=== PATIENT | male | born 1930 | race Caucasian/White ===

== ENCOUNTER 2018-03-19 13:36 | Observation (INO) ==
--- NOTE | 2018-03-19 14:24 | Emergency Department Note ---
ED Disposition Clinical Impression: Cystitis without hematuria Acute kidney failure Qualifiers: Acute renal failure type: unspecified Qualified Code(s): N17.9 - Acute kidney failure, unspecified Disposition: Admitted as Observation Condition on Discharge: Fair Additional Instructions: Being admitted by Dr. Riley for Dr. Martin Referrals: Krystin Barbosa APRN [Primary Care Provider] - Time of Disposition: 17:23 - Critical Care Critical Care Time: No Attestation: On 03/19/18, the high probability of a clinically significant, sudden or life threatening deterioration of the following system(s) required my full and direct attention, intervention and personal management. The time I documented below is in addition to time spent performing reported procedures but includes the following listed in this critical care notation. Medical Decision Making - Medical Records Medical records reviewed: Yes: I reviewed the patient's medical records. - Mil Inquiry Pt receiving controlled substance: No Mil was queried for this patient: No Vital Signs: 03/19/18 13:55 03/19/18 14:07 03/19/18 14:36 Temperature 98.7 F 98.7 F Temperature Source Temporal Artery Scan Oral Pulse Rate [Right Radial] 76 74 69 Respiratory Rate 16 16 16 Blood Pressure [Right Arm] 99/58 106/61 102/54 Blood Pressure Mean [Right Arm] 71 76 70 Blood Pressure Source [Right Arm] Automatic Cuff Automatic Cuff Blood Pressure Position [Right Arm] Sitting Sitting 02 Sat by Pulse Oximetry 96 97 92 L Oxygen Delivery Method Room Air Room Air Room Air 03/19/18 15:00 03/19/18 15:56 03/19/18 16:56 Temperature Temperature Source Pulse Rate [Right Radial] 77 76 72 Respiratory Rate 16 18 Blood Pressure [Right Arm] 104/59 107/74 115/72 Blood Pressure Mean [Right Arm] 74 85 86 Blood Pressure Source [Right Arm] Automatic Cuff Automatic Cuff Automatic Cuff Blood Pressure Position [Right Arm] Sitting Sitting Sitting 02 Sat by Pulse Oximetry 93 L 95 96 Oxygen Delivery Method Room Air Room Air Room Air - Lab Data Lab results reviewed: Yes: I reviewed the patient's lab results. Lab Results 03/19/18 14:25: WBC 9.8, RBC 3.74 L, Hgb 12.1 L, Hct 36.7 L, MCV 97.9 H, MCH 32.3 H, MCHC 33.0, RDW 12.8, Plt Count 211, MPV 8.6, Neut % (Auto) 81.0 H, Lymph % (Auto) 12.2, [place] % (Auto) 5.9, Eos % (Auto) 0.6, Baso % (Auto) 0.3, Neut # (Auto) 7.9 H, Lymph # (Auto) 1.2, [place] # (Auto) 0.6, Eos # (Auto) 0.1, Baso # (Auto) 0.0 03/19/18 14:25: Sodium 139, Potassium 5.2 H, Chloride 107, Carbon Dioxide 21, Anion Gap 16.2 H, BUN 23 H, Creatinine 2.96 H, Estimated Creat Clear 25, Estimated GFR 20 L, Est GFR ( Amer) 25 L, Glucose 107 H, Calcium 9.5, Total Bilirubin 0.6, AST 11 L, ALT 20, Alkaline Phosphatase 104, Total Protein 6.4, Albumin 3.2 L, Globulin 3.2, Albumin/Globulin Ratio 1.0 L 03/19/18 15:23: Lactic Acid 0.8 03/19/18 16:30: Urine Color Yellow, Urine Appearance Cloudy, Urine pH 6.0, Ur Specific [place] 1.025, Urine Protein Trace, Urine Glucose (UA) Negative, Urine Ketones Negative, Urine Blood 2+, Urine Nitrate Negative, Urine Bilirubin Negative, Urine Urobilinogen 0.2, Ur Leukocyte Esterase 2+ A, Urine RBC 5-10, Urine WBC 5-10, Uric Acid Crystals 4+, Urine Bacteria Trace Result diagrams: 03/19/18 14:25 03/19/18 14:25 Orders (Tests/Meds): ED MEDICATIONS Generic Name Dose Route Start Last Admin Trade Name Freq PRN Reason Stop Dose Admin Ceftriaxone Sodium 1 gm/ 50 mls @ 100 mls/hr 03/19/18 17:15 Sodium Chloride IV 03/19/18 17:44 ONCE ONE Protocol Discontinued Medications Generic Name Dose Route Start Last Admin Trade Name Freq PRN Reason Stop Dose Admin Sodium Chloride 1,000 mls @ 500 mls/hr 03/19/18 14:15 03/19/18 14:26 Sod Chlor 0.9% 1000ml Bag IV 03/19/18 16:14 500 mls/hr .Q2H DANITZA Administration Ketorolac Tromethamine 15 mg 03/19/18 14:31 03/19/18 14:36 Toradol 30mg/Ml Vial IV 03/19/18 14:32 15 mg ONCE ONE Administration ORDERS Category Date Time Status Blood Culture Stat Micro 03/19/18 15:23 Received Urine Culture Stat Micro 03/19/18 16:30 Received Male Urogenital HPI - General Chief complaint: Weakness Stated complaint: Poss UTI Time Seen by Provider: 03/19/18 14:15 Mode of Arrival: Wheelchair Source of Information: Spouse Limitations: No Limitations Description of Symptoms (Recalled from ER Triage Doc. by RN): brought pt into hospital because she is concerned with hydration status, states pt is weak and she thinks uti has came back. - History of Present Illness HPI Narrative: Pt had hip surgery on left side 2 weeks ago in [place] and Tuesday was started on Bactrim for a UTI by Dr. Moser's office. Not eating well or drinking well and reportedly talking out of his head according to . now comes to the eD for evaluation Onset (ago): day(s) Duration: constant - Related Data Home Medications Medication Instructions Recorded Confirmed Amlodipine Besylate [Norvasc 5mg 5 mg PO DAILY 11/15/17 03/19/18 tablet] Aspirin [Aspir 81] 81 mg PO DAILY MDD 81mg 11/15/17 03/19/18 Clopidogrel Bisulfate [Plavix 75mg 75 mg PO DAILY MDD 75mg 11/15/17 03/19/18 Tab] Metformin HCl [Metformin 500mg 500 mg PO DAILY MDD 500mg 11/15/17 03/19/18 Tablet] Sacubitril/Valsartan [Entresto 24 1 each PO BID 11/15/17 03/19/18 mg-26 mg Tablet] Sulfamethoxazole/Trimethoprim 1 each PO BID 03/19/18 03/19/18 [Bactrim DS tablet] Allergies Allergy/AdvReac Type Severity Reaction Status Date / Time acetaminophen [From Lortab] Allergy Verified 03/19/18 13:55 hydrocodone [From Lortab] Allergy Verified 03/19/18 13:55 morphine [MORPHINE] AdvReac Unknown "MAKES Verified 03/19/18 13:55 CRAZY" [facility] History I have reviewed the patient's past medical history: Yes Medical History: Reports:: Myocardial Infarction (July 2018) Denies:: Cancer, Diabetes Mellitus Type 1, Diabetes Mellitus Type 2, Internal Pacemaker, MRSA Laterality Cases: Right: Arthroscopy Hip Other Surgeries: No: Pacemaker Amputation: No Fractures: No - Social History Smoking Status: Never smoker Alcohol Intake: never - Psychiatric History Expresses thoughts of harming self/others: None Suicide Plan Description: No Plan ROS Obtained: Yes All systems reviewed & no additional complaints Physical Exam - General General appearance: alert, in no apparent distress - Head Head exam: atraumatic - ENT ENT exam: Present: mucous membranes dry - Respiratory Respiratory exam: Present: normal lung sounds bilaterally, respiratory distress - Cardiovascular Cardiovascular exam: Present: regular rate, normal rhythm - Neurological Exam Neurological exam: Present: alert
[2018-03-19 14:45] LABS: Basophils % 0.3 % (0.1-2.0); Eosinophils # 0.1 K/mm3 (0.0-0.4); Eosinophils % 0.6 % (0.1-12.0); Hematocrit 36.7 % (42.0-52.0); Hemoglobin 12.1 g/dL (14.1-18.0); Lymphocytes # 1.2 K/mm3 (0.7-4.5); Lymphocytes % 12.2 K/mm3 (10-50); Mean Corpuscular Hemoglobin 32.3 pg (27.0-31.2); Mean Corpuscular Volume 97.9 fl (80-94); Mean Platelet Volume 8.6 fl (7.4-10.4); Monocytes # 0.6 K/mm3 (0.1-1.0); Monocytes % 5.9 % (1.7-9.3); Neutrophils # 7.9 K/mm3 (1.8-7.8); Platelet Count 211 K/mm3 (142-424); Red Blood Count 3.74 M/mm3 (4.60-6.20); Red Cell Distribution Width 12.8 % (11.5-17.5); White Blood Count 9.8 K/mm3 (4.8-10.8)
[2018-03-19 14:48] LABS: Albumin Level 3.2 gm/dL (3.4-5.0); Anion Gap 16.2 mEq/L (5-15); Bilirubin,Total 0.6 mg/dL (0.2-1.0); Calcium 9.5 mg/dL (8.5-10.1); Globulin 3.2 gm/dl (1.3-3.2); Potassium 5.2 mmoL/L (3.5-5.1); Total Protein,Serum 6.4 gm/dL (6.4-8.2)
[2018-03-19 16:36] LABS: Appearance,Urine CLOUDY (Clear); Bilirubin,Urine Negative (Negative); Blood, Urine 2+ (Negative); Color,Urine YELLOW (Yellow); Glucose,Urine (UA) Negative (Negative); Ketones,Urine Negative (Negative); Leukocyte Esterase,Urine 2+ (Negative); Microscopic, Urine URINE MICROSCOPIC (MICROSCOPIC); Protein,Urine TRACE (Negative); Specific Gravity, Urine 1.025 (1.005-1.030); Urobilinogen,Urine 0.2 EU/dl (0.2)
[2018-03-19 16:44] LABS: Bacteria,Urine Trace /lpf; Uric Acid Crystals,Urine 4+ /lpf
[2018-03-20 05:58] LABS: Basophils % 0.5 % (0.1-2.0); Eosinophils # 0.3 K/mm3 (0.0-0.4); Eosinophils % 4.3 % (0.1-12.0); Hematocrit 33.1 % (42.0-52.0); Hemoglobin 11.1 g/dL (14.1-18.0); Lymphocytes % 15.6 K/mm3 (10-50); Mean Corpuscular HGB Conc 33.7 g/dL (31.8-35.4); Mean Corpuscular Volume 97.8 fl (80-94); Mean Platelet Volume 9.1 fl (7.4-10.4); Monocytes # 0.4 K/mm3 (0.1-1.0); Monocytes % 5.8 % (1.7-9.3); Neutrophils # 4.6 K/mm3 (1.8-7.8); Neutrophils % 73.8 % (37.0-80.0); Platelet Count 157 K/mm3 (142-424); Red Blood Count 3.38 M/mm3 (4.60-6.20); Red Cell Distribution Width 12.8 % (11.5-17.5); White Blood Count 6.2 K/mm3 (4.8-10.8)
[2018-03-20 06:09] LABS: Anion Gap 14.7 mEq/L (5-15); Calcium 8.6 mg/dL (8.5-10.1); Potassium 4.7 mmoL/L (3.5-5.1)
--- NOTE | 2018-03-20 07:10 | History & Physical Report ---
*Admission Date: 03/19/18 *Chief complaint: Weakness *History of present illness: 87-year-old male with recent hip fracture repair was brought to the hospital by his due to concerns about dehydration and possible failed treatment of a urinary tract infection. Patient was placed on Bactrim approximately a week ago for treatment of UTI. has noticed he had become weak with poor appetite and worsening confusion. Patient has dementia that impacts his ability to make decisions. [facility] History I have reviewed the patient's past medical history: Yes Medical History: Reports:: Dementia, Diabetes Mellitus Type 2, Myocardial Infarction (July 2018) Denies:: Cancer, Diabetes Mellitus Type 1, Internal Pacemaker, MRSA Laterality Cases: Right: Arthroscopy Hip, Total Knee Replacement Other Surgeries: No: Pacemaker Amputation: No Fractures: No - *Social History Educational Level: Completed High School Smoking Status: Never smoker Alcohol Intake: never Occupational Status: retired Housing: house Household Members: spouse - Psychiatric History Expresses thoughts of harming self/others: None Suicide Plan Description: No Plan *Family Hx:: Cancer, Heart Attack Review of Systems - Review of Systems Review of systems:: unable to obtain Meds Home Medications Medication Instructions Recorded Confirmed Type Amlodipine Besylate [Norvasc 5mg 5 mg PO DAILY 11/15/17 03/19/18 History tablet] Aspirin [Aspir 81] 81 mg PO DAILY MDD 81mg 11/15/17 03/19/18 History Clopidogrel Bisulfate [Plavix 75mg 75 mg PO DAILY MDD 75mg 11/15/17 03/19/18 History Tab] Metformin HCl [Metformin 500mg 500 mg PO BID MDD 500mg 11/15/17 03/19/18 History Tablet] Sacubitril/Valsartan [Entresto 24 1 each PO BID 11/15/17 03/19/18 History mg-26 mg Tablet] Sulfamethoxazole/Trimethoprim 1 each PO BID 03/19/18 03/19/18 History [Bactrim DS tablet] Allergies Allergy/AdvReac Type Severity Reaction Status Date / Time acetaminophen [From Lortab] Allergy Verified 03/19/18 13:55 hydrocodone [From Lortab] Allergy Verified 03/19/18 13:55 morphine [MORPHINE] AdvReac Unknown "MAKES Verified 03/19/18 13:55 CRAZY" Exam Vital signs and Labs for Last 24 Hours: Temp Pulse Resp BP Pulse Ox 97.7 F 96 H 18 127/71 97 03/20/18 04:32 03/20/18 04:32 03/20/18 04:32 03/20/18 04:32 03/20/18 04:32 Laboratory Results - last 24 hr 03/19/18 14:25: WBC 9.8, RBC 3.74 L, Hgb 12.1 L, Hct 36.7 L, MCV 97.9 H, MCH 32.3 H, MCHC 33.0, RDW 12.8, Plt Count 211, MPV 8.6, Neut % (Auto) 81.0 H, Lymph % (Auto) 12.2, [place] % (Auto) 5.9, Eos % (Auto) 0.6, Baso % (Auto) 0.3, Neut # (Auto) 7.9 H, Lymph # (Auto) 1.2, [place] # (Auto) 0.6, Eos # (Auto) 0.1, Baso # (Auto) 0.0 03/19/18 14:25: Sodium 139, Potassium 5.2 H, Chloride 107, Carbon Dioxide 21, Anion Gap 16.2 H, BUN 23 H, Creatinine 2.96 H, Estimated Creat Clear 25, Estimated GFR 20 L, Est GFR ( Amer) 25 L, Glucose 107 H, Calcium 9.5, Total Bilirubin 0.6, AST 11 L, ALT 20, Alkaline Phosphatase 104, Total Protein 6.4, Albumin 3.2 L, Globulin 3.2, Albumin/Globulin Ratio 1.0 L 03/19/18 15:23: Lactic Acid 0.8 03/19/18 16:30: Urine Color Yellow, Urine Appearance Cloudy, Urine pH 6.0, Ur Specific [place] 1.025, Urine Protein Trace, Urine Glucose (UA) Negative, Urine Ketones Negative, Urine Blood 2+, Urine Nitrate Negative, Urine Bilirubin Negative, Urine Urobilinogen 0.2, Ur Leukocyte Esterase 2+ A, Urine RBC 5-10, Urine WBC 5-10, Uric Acid Crystals 4+, Urine Bacteria Trace 03/20/18 05:36: WBC 6.2 D, RBC 3.38 L, Hgb 11.1 L, Hct 33.1 L, MCV 97.8 H, MCH 33.0 H, MCHC 33.7, RDW 12.8, Plt Count 157 D, MPV 9.1, Neut % (Auto) 73.8, Lymph % (Auto) 15.6, [place] % (Auto) 5.8, Eos % (Auto) 4.3, Baso % (Auto) 0.5, Neut # (Auto) 4.6, Lymph # (Auto) 1.0, [place] # (Auto) 0.4, Eos # (Auto) 0.3, Baso # (Auto) 0.0 03/20/18 05:36: Sodium 141, Potassium 4.7, Chloride 111 H, Carbon Dioxide 20 L, Anion Gap 14.7, BUN 23 H, Creatinine 2.32 H D, Estimated Creat Clear 27, Estimated GFR 27 L, Est GFR ( Amer) 33 L D, Glucose 80 D, Calcium 8.6 I & O for Last 24 hours: Intake & Output 03/17/18 03/18/18 03/19/18 03/20/18 11:59 11:59 11:59 11:59 Intake Total 1360 / 1360 Output Total 100 / 100 Balance 1260 / 1260 Weight 179 lb 4 oz Narrative: Patient is sleeping soundly this morning after being awake most of the night. He is in no respiratory distress. Lungs are clear to auscultation. Heart has a regular rate and rhythm. Abdomen is soft and nontender. Extremities are warm to the touch H&P: Result - Labs Labs: Short CBC 03/19/18 03/20/18 Range/Units 14:25 05:36 WBC 9.8 6.2 D (4.8-10.8) K/mm3 Hgb 12.1 L 11.1 L (14.1-18.0) g/dL Hct 36.7 L 33.1 L (42.0-52.0) % Plt Count 211 157 D (142-424) K/mm3 BMP 03/19/18 03/20/18 14:25 05:36 Sodium 139 141 Potassium 5.2 H 4.7 Chloride 107 111 H Carbon Dioxide 21 20 L BUN 23 H 23 H Creatinine 2.96 H 2.32 H D Glucose 107 H 80 D Calcium 9.5 8.6 Liver Function 03/19/18 Range/Units 14:25 Total Bilirubin 0.6 (0.2-1.0) mg/dL AST 11 L (15-37) U/L ALT 20 (12-78) U/L Alkaline Phosphatase 104 (46-116) U/L Albumin 3.2 L (3.4-5.0) gm/dL Urine 03/19/18 Range/Units 16:30 Urine Color Yellow (Yellow) Urine Appearance Cloudy (Clear) Urine pH 6.0 (5.0-8.5) Ur Specific [place] 1.025 (1.005-1.030) Urine Protein Trace (Negative) Urine Glucose (UA) Negative (Negative) Assessment and Plan (1) UTI (urinary tract infection) Current visit: No Status: Acute Category: Medical Code(s): N39.0 - Urinary tract infection, site not specified (2) Acute kidney injury Current visit: Yes Status: Acute Category: Medical Code(s): N17.9 - Acute kidney failure, unspecified (3) Hip fracture, left Current visit: No Status: Acute Category: Medical Code(s): S72.002A - Fracture of unspecified part of neck of left femur, initial encounter for closed fracture - Assessment and plan all Dx Assessment and Plan for all problems:: 1. Admit for IV fluids and IV antibiotics while awaiting urine culture 2. PT eval SNF versus home needs 3. Decreased fluids this morning as patient is already responding to intravenous hydration. Repeat BMP in a.m.
--- NOTE | 2018-03-20 07:31 | Pharmacy Consult Notes ---
[facility] Pharmacy VTE Monitoring - Patient Demographics Admission date: 03/19/18 Report Date: 03/20/18 Time: 07:31 Allergies/Adverse Reactions: Patient Allergies acetaminophen [From Lortab] Allergy (Verified 03/19/18 13:55) hydrocodone [From Lortab] Allergy (Verified 03/19/18 13:55) morphine [MORPHINE] Adverse Reaction (Unknown, Verified 03/19/18 13:55) "MAKES CRAZY" Height: 1.85 m Weight: 81.306 kg Patient Problems: Current Active Problems Acute kidney failure (Acute) Cystitis without hematuria (Acute) Acute kidney injury (Acute) - VTE Risk Labs: VTE Related Lab Results Hgb 11.1 g/dL (14.1-18.0) L 03/20/18 05:36 Hct 33.1 % (42.0-52.0) L 03/20/18 05:36 Plt Count 157 K/mm3 (142-424) D 03/20/18 05:36 BUN 23 mg/dL (7-18) H 03/20/18 05:36 Creatinine 2.32 mg/dL (0.70-1.30) H D 03/20/18 05:36 Estimated Creat Clear 27 mL/min (0-300) 03/20/18 05:36 Was VTE Risk Assessment Performed: Yes VTE Score: 3 VTE Risk Level: Moderate Risk - Prophylaxis VTE Prophylaxis Ordered?: Yes Types of VTE Prophylaxis: TEDS Knee High Location of Applied Device: Bilateral Lower Extremeties - VTE Diagnosis Confirmed Treatment or plan recommended: Continue Current Treatment
[2018-03-21 06:32] LABS: Anion Gap 18.6 mEq/L (5-15); Calcium 8.7 mg/dL (8.5-10.1); Potassium 4.6 mmoL/L (3.5-5.1)
--- NOTE | 2018-03-21 07:16 | Progress Note ---
Internal Medicine - PN: Subj *Date: 03/21/18 *Time: 07:13 Interval history: Patient slept quite a bit during the day yesterday. He underwent PT eval and per the therapist's note he is appropriate for SNF level of care for rehab. Patient unfortunately was awake most of the night and nursing staff had difficulty keeping him in bed. There were safety concerns and a sitter was placed with the patient. This morning the patient denies being in any significant pain. He is oriented to person but is telling me stories about persons being electrocuted here in [place]. Exam Vital signs and Labs for Last 24 Hours: Temp Pulse Resp BP Pulse Ox 98.1 F 104 H 20 143/89 95 03/21/18 04:00 03/21/18 04:00 03/21/18 04:00 03/21/18 04:00 03/21/18 04:00 Laboratory Results - last 24 hr 03/21/18 05:44: Sodium 141, Potassium 4.6, Chloride 110 H, Carbon Dioxide 17 L, Anion Gap 18.6 H, BUN 22 H, Creatinine 1.91 H, Estimated Creat Clear 32, Estimated GFR 34 L, Est GFR ( Amer) 41 L D, Glucose 79, Calcium 8.7 I & O for Last 24 hours: Intake & Output 03/18/18 03/19/18 03/20/18 03/21/18 11:59 11:59 11:59 11:59 Intake Total 1360 / 1360 2130 / 2130 Output Total 100 / 100 725 / 725 Balance 1260 / 1260 1405 / 1405 Weight 179 lb 4 oz 178 lb 9 oz Microbiology Reports for the Last 24 Hours: Microbiology 03/19/18 16:30 Urine,Clean Catch Urine Culture - Preliminary NO GROWTH AFTER 24 HOURS Narrative: Patient is sitting up in the chair and is comfortable. He can converse although thought processes are not organized. Lungs are clear to auscultation. Heart has a regular rate and rhythm. Extremities are without edema. Assessment and Plan (1) UTI (urinary tract infection) Current visit: No Status: Acute Category: Medical Code(s): N39.0 - Urinary tract infection, site not specified (2) Acute kidney injury Current visit: Yes Status: Acute Category: Medical Code(s): N17.9 - Acute kidney failure, unspecified (3) Hip fracture, left Current visit: No Status: Acute Category: Medical Code(s): S72.002A - Fracture of unspecified part of neck of left femur, initial encounter for closed fracture - Assessment and plan all Dx Assessment and Plan for all problems:: I do believe he would benefit from a brief SNF stay for rehab purposes. Continue PT OT today. Management consult. When talking with the and patient yesterday she left the decision on whether or not to go to an SNF up to the patient. I am not sure he is capable of making that decision at this moment. Yesterday afternoon he may have been capable of making that decision. He was previously in [facility] after his hip fracture.
--- NOTE | 2018-03-22 06:59 | Discharge Summary ---
General - General Admission date:: 03/19/18 Discharge date: 03/23/18 HPI HPI: 87-year-old male with recent hip fracture repair was brought to the hospital by his due to concerns about dehydration and possible failed treatment of a urinary tract infection. Patient was placed on Bactrim approximately a week ago for treatment of UTI. has noticed he had become weak with poor appetite and worsening confusion. Patient has dementia that impacts his ability to make decisions. Hospital Course Hospital Course: Patient was admitted for acute kidney injury and possible UTI and placed on intravenous Rocephin. With intravenous fluid hydration patient's BUN and creatinine gradually improved. Nephrotoxic medications were held. Metformin will be discontinued. Urine culture was negative for urinary tract infection. Patient had bouts of complaining of pain from the left leg and hip. PT was consulted. On PT evaluation [facility] facility rehab was recommended. Patient had bouts of confusion and sundowning that led to multiple attempts of the patient to get out of bed. Nursing staff continually assisted and redirected the patient. It was felt best that patient transition to home through a [facility] facility patient and family were agreeable to go to [facility]. Patient was discharged to [facility]. Rehab potential: Fair Prognosis: Fair Mental status: Consistently oriented to person Objective Vital signs: Temp Pulse Resp BP Pulse Ox 98.2 F 75 18 136/68 98 03/22/18 04:00 03/22/18 04:00 03/22/18 04:00 03/22/18 04:00 03/22/18 04:00 Results Labs on day of discharge: Preliminary micro results at discharge 03/19/18 15:23 Blood Culture - Preliminary Blood NO GROWTH AFTER 48 HOURS 03/19/18 15:23 Blood Culture - Preliminary Blood NO GROWTH AFTER 48 HOURS DS: Diagnosis - Discharge Diagnosis (1) UTI (urinary tract infection) Status: Acute (2) Acute kidney injury Status: Acute (3) Hip fracture, left Status: Acute (4) Dementia Status: Acute Discharge Plan - Patient Discharge Instructions ACTIVITY: Continue current activity DIET: continue same diet Patient Instructions: Acute Renal Failure, DI for Alzheimer's Disease - Follow up Plan Disposition: [facility] Home Medications: Home Medications Medication Instructions Recorded Confirmed Type Amlodipine Besylate [Norvasc 5mg 5 mg PO DAILY 11/15/17 03/19/18 History tablet] Aspirin [Aspir 81] 81 mg PO DAILY 11/15/17 03/19/18 History Clopidogrel Bisulfate [Plavix 75mg 75 mg PO DAILY 11/15/17 03/19/18 History Tab] Diclofenac Sodium [Diclofenac 75mg 75 mg PO BIDP PRN 03/20/18 03/20/18 History Tab] Ergocalciferol (Vitamin D2) 50,000 unit PO WEEKLY 03/20/18 03/20/18 History [Vitamin D2] Metoprolol Tartrate [Lopressor 25 mg PO BID 03/20/18 03/20/18 History 25mg tablet] Nitroglycerin [Nitrostat 0.4mg SL 0.4 mg SL Q5MINP PRN 03/20/18 03/20/18 History Tablet] Ondansetron HCl 4 mg PO Q4H 03/20/18 03/20/18 History Rosuvastatin Calcium 20 mg PO WEEKLY 03/20/18 03/20/18 History Sacubitril/Valsartan [Entresto 49 1 each PO BID 03/20/18 03/20/18 History mg-51 mg Tablet] Prescriptions/Medication Reconciliation: New Tramadol HCl [Ultram 50mg tablet] 50 mg PO Q6HP PRN #120 tab PRN Reason: Moderate To Severe Pain Continue Amlodipine Besylate [Norvasc 5mg tablet] 5 mg PO DAILY Aspirin [Aspir 81] 81 mg PO DAILY Ondansetron HCl 4 mg PO Q4H Diclofenac Sodium [Diclofenac 75mg Tab] 75 mg PO BIDP PRN PRN Reason: Inflammation Metoprolol Tartrate [Lopressor 25mg tablet] 25 mg PO BID Nitroglycerin [Nitrostat 0.4mg SL Tablet] 0.4 mg SL Q5MINP PRN PRN Reason: Chest Pain Rosuvastatin Calcium 20 mg PO WEEKLY Chlordiazepoxide HCl 5 mg PO BID #60 Clopidogrel Bisulfate [Plavix 75mg Tab] 75 mg PO DAILY Sacubitril/Valsartan [Entresto 49 mg-51 mg Tablet] 1 each PO BID Ergocalciferol (Vitamin D2) [Vitamin D2] 50,000 unit PO WEEKLY Discontinued Metformin HCl [Metformin 500mg Tablet] 500 mg PO BID Sulfamethoxazole/Trimethoprim [Bactrim DS tablet] 1 each PO BID Hydrocodone/Ibuprofen [Hydrocodone-Ibuprofen 7.5-200] 1 tab PO DAILYP PRN PRN Reason: PAIN Acetaminophen with Codeine [Acetaminophen w/Codeine #3 Tablet] 1 tab PO Q6H
== END 2018-03-23 09:48 ==
LOC: UTC 13:36 → 2ND 13:36
PROVIDERS: ADMIT Internal Medicine Adolescent Medicine; ATTEND Family Medicine
CPT/HCPCS: 36415; 80048; 80053; 81001; 83605; 85025; 87040; 87086; 96365; 96375; 97116; 97163; 97530; 99285; G0378; J1956

== ENCOUNTER 2018-05-30 17:03 | Observation (INO) ==
--- NOTE | 2018-05-30 17:29 | Emergency Department Note ---
ED Disposition Clinical Impression: Dehydration, Orthostatic hypotension Disposition: Still a Patient Condition on Discharge: Fair Referrals: Krystin Barbosa APRN [Primary Care Provider] - - Critical Care Critical Care Time: No Attestation: On 05/30/18, the high probability of a clinically significant, sudden or life threatening deterioration of the following system(s) required my full and direct attention, intervention and personal management. The time I documented below is in addition to time spent performing reported procedures but includes the following listed in this critical care notation. Medical Decision Making - Mil Inquiry Pt receiving controlled substance: No Vital Signs: 05/30/18 17:04 05/30/18 17:22 05/30/18 17:30 Temperature 97.5 F L Temperature Source Oral Pulse Rate [Orthostatic Lying Right] 90 Pulse Rate [Orthostatic Sitting Right] 87 Pulse Rate [Right Brachial] 87 75 Respiratory Rate 20 Blood Pressure [Orthostatic Lying Right Arm] 119/86 Blood Pressure [Orthostatic Sitting Right Arm] 125/63 Blood Pressure [Right Arm] 125/63 118/46 L Blood Pressure Mean [Right Arm] 83 70 Blood Pressure Source [Right Arm] Automatic Cuff Automatic Cuff Blood Pressure Position [Right Arm] Sitting Sitting 02 Sat by Pulse Oximetry 100 97 Oxygen Delivery Method Room Air Room Air 05/30/18 17:59 05/30/18 18:29 Temperature Temperature Source Pulse Rate [Orthostatic Lying Right] Pulse Rate [Orthostatic Sitting Right] Pulse Rate [Right Brachial] 84 95 H Respiratory Rate Blood Pressure [Orthostatic Lying Right Arm] Blood Pressure [Orthostatic Sitting Right Arm] Blood Pressure [Right Arm] 124/68 130/73 Blood Pressure Mean [Right Arm] 86 92 Blood Pressure Source [Right Arm] Automatic Cuff Automatic Cuff Blood Pressure Position [Right Arm] Sitting Sitting 02 Sat by Pulse Oximetry 95 96 Oxygen Delivery Method Room Air Room Air - Lab Data Lab Results 05/30/18 17:05: WBC 7.0, RBC 3.90 L, Hgb 12.6 L, Hct 39.0 L, MCV 99.8 H, MCH 32 .3 H, MCHC 32.4, RDW 14.7, Plt Count 226, MPV 8.8, Neut % (Auto) 65.2, Lymph % (Auto) 25.6, [place] % (Auto) 5.5, Eos % (Auto) 3.3, Baso % (Auto) 0.4, Neut # (Auto) 4.6, Lymph # (Auto) 1.8, [place] # (Auto) 0.4, Eos # (Auto) 0.2, Baso # (Auto) 0.0 05/30/18 17:05: Sodium 142, Potassium 4.5, Chloride 107, Carbon Dioxide 23, Anion Gap 16.5 H, BUN 24 H, Creatinine 1.90 H, Estimated Creat Clear 31, Estimated GFR 34 L, Est GFR ( Amer) 41 L, Glucose 116 H, Calcium 9.6, Total Bilirubin 0.7, AST 10 L, ALT 21, Alkaline Phosphatase 139 H, Total Protein 6.6, Albumin 3.1 L, Globulin 3.5 H, Albumin/Globulin Ratio 0.9 L 05/30/18 17:05: Troponin I 0.02 05/30/18 18:05: Urine Color Yellow, Urine Appearance Clear, Urine pH 6.0, Ur Specific [place] >= 1.030, Urine Protein 1+, Urine Glucose (UA) Negative, Urine Ketones Negative, Urine Blood 1+, Urine Nitrate Negative, Urine Bilirubin Negative, Urine Urobilinogen 0.2, Ur Leukocyte Esterase 1+ A, Urine RBC 3-5, Urine WBC 5-10, Ur Squamous Epith Cells Occasional, Urine Bacteria 2+ Result diagrams: 05/30/18 17:05 05/30/18 17:05 Orders (Tests/Meds): ORDERS Category Date Time Status Urinalysis and Microscopic Stat Lab 05/30/18 18:05 Ordered Urine Culture Stat Micro 05/30/18 18:05 Received - ECG Data Tracing #1 EKG interpreted by Rangel Zavala MD: Rhythm: sinus Rate: 81 [place]: normal Ectopy: Unifocal PVCs Conduction: Left bundle branch block ST Segment Changes: none T Wave Changes: none Q Waves: none No evidence of acute ischemia or injury Prior electrocardiagrams reviewed. No change from prior tracings. - Physician Consults Physician Consulted: Osvaldo Martin Time: 19:19 Reason -: Admission Comment/Response: Agrees to admit the patient to the hospital. We discussed the patient's clinical information, including history, exam, laboratory and radiology results and ED course. Per hospital procedure, I will write temporary bridge inpatient orders on the patient. Specific orders requested by the admitting physician: Continue IV fluids. Continue Macrobid. PPD. Medical Decision Narrative: Reviewed microbiology results. Several urine cultures this year. All negative or multiple organisms suggesting contamination. None showed a documented urinary tract infection. 7:00: Patient only had 30 cc of urine in his bladder when catheterized, urine dark and concentrated. Although BUN and creatinine are unremarkable the symptoms and urine output/urine analysis suggest dehydration. General Adult HPI - General Chief complaint: Weakness Stated complaint: weakness, not eating/drinking Time Seen by Provider: 05/30/18 17:18 Mode of Arrival: EMS Limitations: No Limitations Description of Symptoms (Recalled from ER Triage Doc. by RN): Per EMS reports home health nurse reported pt not eating or drinking, generalized weakness. Stated home health nurse attempted to do orthostatic blood pressures on pt, states there was decrease from lying to sitting and then when stood pt up he became very lethargic and had a near syncople episode per report. Reported pt is currenlty taking Macrobid for UTI - History of Present Illness HPI narrative: History predominantly obtained from . Brought in by ambulance from home because of concerns for orthostatic hypotension and dehydration. Not eating and not drinking well. Recently had a hip fracture repaired 02/20/18. Has been home from the group home for 8 days. reports that he has had problems with orthostasis since his hip fracture. States that he was diagnosed with dehydration at [facility] and received 1 L of IV fluids. She believes he has gotten dehydrated again. He complains of feeling weak. He has some dizziness when he stands. Otherwise he denies complaints. No pain. No nausea. No difficulty breathing. Seen today by his home health care nurse who found him to be orthostatic. Also has chronic, recurrent UTIs. Currently under treatment. states that he has been started on maintenance antibiotics within the past couple of weeks. She has spoken with the urologist, although he has not actually seen the urol ogist. He was admitted for the same complaints 03/19 through 03/23. - Related Data Home Medications Medication Instructions Recorded Confirmed Aspirin [Aspir 81] 81 mg PO DAILY 11/15/17 05/30/18 Clopidogrel Bisulfate [Plavix 75mg 75 mg PO DAILY 11/15/17 05/30/18 Tab] Metformin HCl 500 mg PO BID 10/02/18 10/02/18 Allergies Allergy/AdvReac Type Severity Reaction Status Date / Time acetaminophen [From Lortab] Allergy Verified 03/19/18 13:55 hydrocodone [From Lortab] Allergy Verified 03/19/18 13:55 morphine [MORPHINE] AdvReac Unknown "MAKES Verified 03/19/18 13:55 CRAZY" [facility] History I have reviewed the patient's past medical history: Yes Medical History: Reports:: Dementia, Diabetes Mellitus Type 2, Myocardial Infarction (July 2018) Denies:: Cancer, Diabetes Mellitus Type 1, Internal Pacemaker, MRSA Laterality Cases: Left: Arthroscopy Hip, Arthroscopy Knee Other Surgeries: No: Pacemaker Amputation: No Fractures: No - Social History Smoking Status: Never smoker Alcohol Intake: never Occupational Status: retired Housing: house Household Members: spouse - Psychiatric History Expresses thoughts of harming self/others: None Suicide Plan Description: No Plan Family Hx:: Cancer, Heart Attack ROS Obtained: Yes All systems reviewed & no additional complaints - Constitutional Constitutional: Reports fatigue, Reports poor appetite, Reports weakness - Cardiovascular Cardiovascular: Denies chest pain - Respiratory Respiratory: No cough, No dyspnea - Gastrointestinal Gastrointestingal: Denies: abdominal pain, diarrhea, vomiting - Neurologic Neurologic: Denies headache(s) Physical Exam - General General appearance: alert, in no apparent distress - Head Head exam: atraumatic, normocephalic, normal inspection - Eye Eye exam: Present: normal appearance, PERRL, EOMI - ENT ENT exam: Present: mucous membranes moist - Neck Neck exam: Present: normal inspection, full ROM, trachea midline. Absent: meningismus, lymphadenopathy - Chest Chest inspection: Present: normal inspection, symmetric chest wall rise. Absent: tenderness - Respiratory Respiratory exam: Present: normal lung sounds bilaterally. Absent: respiratory distress - Cardiovascular Cardiovascular exam: Present: regular rate, normal rhythm. Absent: JVD - Abdominal Exam Abdominal exam: Present: soft, normal bowel sounds. Absent: distention, tenderness, guarding - Extremities Exam Extremities exam: Present: normal inspection, full ROM, normal capillary refill. Absent: calf tenderness - Back Exam Back exam: Present: normal inspection. Absent: tenderness - Neurological Exam Neurological exam: Present: alert, oriented X3 - Psychiatric Psychiatric exam: Present: normal affect, normal mood - Skin Skin exam: Present: warm, dry, intact, normal color
[2018-05-30 17:36] LABS: Basophils % 0.4 % (0.1-2.0); Eosinophils # 0.2 K/mm3 (0.0-0.4); Eosinophils % 3.3 % (0.1-12.0); Hemoglobin 12.6 g/dL (14.1-18.0); Lymphocytes # 1.8 K/mm3 (0.7-4.5); Lymphocytes % 25.6 K/mm3 (10-50); Mean Corpuscular HGB Conc 32.4 g/dL (31.8-35.4); Mean Corpuscular Hemoglobin 32.3 pg (27.0-31.2); Mean Corpuscular Volume 99.8 fl (80-94); Mean Platelet Volume 8.8 fl (7.4-10.4); Monocytes # 0.4 K/mm3 (0.1-1.0); Monocytes % 5.5 % (1.7-9.3); Neutrophils # 4.6 K/mm3 (1.8-7.8); Neutrophils % 65.2 % (37.0-80.0); Platelet Count 226 K/mm3 (142-424); Red Cell Distribution Width 14.7 % (11.5-17.5)
[2018-05-30 17:44] LABS: Albumin Level 3.1 gm/dL (3.4-5.0); Albumin/Globulin Ratio 0.9 (1.1-1.8); Anion Gap 16.5 mEq/L (5-15); Bilirubin,Total 0.7 mg/dL (0.2-1.0); Calcium 9.6 mg/dL (8.5-10.1); Globulin 3.5 gm/dl (1.3-3.2); Potassium 4.5 mmoL/L (3.5-5.1); Total Protein,Serum 6.6 gm/dL (6.4-8.2)
[2018-05-30 18:28] LABS: Microscopic, Urine URINE MICROSCOPIC (MICROSCOPIC)
[2018-05-30 18:30] LABS: Appearance,Urine CLEAR (Clear); Bilirubin,Urine Negative (Negative); Blood, Urine 1+ (Negative); Color,Urine YELLOW (Yellow); Glucose,Urine (UA) Negative (Negative); Ketones,Urine Negative (Negative); Leukocyte Esterase,Urine 1+ (Negative); Protein,Urine 1+ (Negative); Specific Gravity, Urine >= 1.030 (1.005-1.030); Urobilinogen,Urine 0.2 EU/dl (0.2)
[2018-05-30 18:49] LABS: Bacteria,Urine 2+ /lpf; Squamous Epithelial Cell,Urine Occasional #/hpf (0-5)
--- NOTE | 2018-05-31 07:08 | History & Physical Report ---
*Admission Date: 05/30/18 *Chief complaint: Weakness *History of present illness: 88-year-old male presented to the emergency department after having a near syncopal event at home. Patient was discharged from [facility] approximately 1 week ago. During that time he had problems with hypotension and all ant ihypertensives have been discontinued. Yesterday patient was being assessed by home health and poor home health report patient had a significant drop in his blood pressure when he went from seated to standing. This led to the patient nearly falling from passing out. Patient was brought to the emergency department. In the emergency department blood pressures were normal. I do not see if orthostatics were repeated. Patient was admitted for IV fluids. Labs were essentially normal although urine was quite dark. Patient has been treated frequently for urinary tract infections over the last 4-6 months but has no culture positive urines. Patient history is primarily taken from the ER note and phone call that the made to my office. While nursing notes report patient has been alert and oriented x3 prior to my arrival this morning the patient fell when trying to get out of bed and struck the back of his head on a cabinet. When asked if he remembers the events of yesterday that led to his admission patient cannot recall what led to his hospitalization. He does start to tell me that he apparently has some upcoming doctor's appointments. From his fall this morning he does admit to some pain in the head. He struck his left arm as well but denies any significant elbow pain. [facility] History I have reviewed the patient's past medical history: Yes Medical History: Reports:: Cancer, Congestive Heart Failure, Dementia, Myocardial Infarction (July 2018) Denies:: Diabetes Mellitus Type 1, Diabetes Mellitus Type 2, Internal Pacemaker, MRSA Laterality Cases: Left: Arthroscopy Hip, Arthroscopy Knee Other Surgeries: Yes: Cancer Surgery. No: Pacemaker Amputation: No Fractures: No - *Social History Educational Level: Completed High School Smoking Status: Never smoker Alcohol Intake: never Occupational Status: retired Housing: house Household Members: spouse - Psychiatric History Expresses thoughts of harming self/others: None Suicide Plan Description: No Plan *Family Hx:: Heart Attack Review of Systems - Review of Systems Review of systems:: pertinent systems reviewed and negative unless documented below - Constitutional Denies body ache(s), Denies chills - *Cardiovascular Denies chest pain, Denies chest pain at rest, Denies chest pain with activity - *Gastrointestinal Denies abdominal pain, Denies belching, Denies bloating - *Genitourinary Reports difficulty urinating, Denies painful urination - *Musculoskeletal Reports abnormal walking, Reports joint pain, Reports joint swelling - *Neurologic Reports confusion, Reports localized weakness, Reports frequent falls, Reports weakness, Denies headache(s) - Psychiatric Reports memory loss Meds Home Medications Medication Instructions Recorded Confirmed Type Aspirin [Aspir 81] 81 mg PO DAILY 11/15/17 05/30/18 History Clopidogrel Bisulfate [Plavix 75mg 75 mg PO DAILY 11/15/17 05/30/18 History Tab] Metformin HCl 500 mg PO BID 05/30/18 05/30/18 History Allergies Allergy/AdvReac Type Severity Reaction Status Date / Time acetaminophen [From Lortab] Allergy Verified 03/19/18 13:55 hydrocodone [From Lortab] Allergy Verified 03/19/18 13:55 morphine [MORPHINE] AdvReac Unknown "MAKES Verified 03/19/18 13:55 CRAZY" Exam Vital signs and Labs for Last 24 Hours: Temp Pulse Resp BP Pulse Ox 97.7 F 80 18 141/80 H 97 05/31/18 04:00 05/31/18 04:00 05/31/18 04:00 05/31/18 04:00 05/31/18 04:00 Laboratory Results - last 24 hr 05/30/18 17:05: WBC 7.0, RBC 3.90 L, Hgb 12.6 L, Hct 39.0 L, MCV 99.8 H, MCH 32.3 H, MCHC 32.4, RDW 14.7, Plt Count 226, MPV 8.8, Neut % (Auto) 65.2, Lymph % (Auto) 25.6, [place] % (Auto) 5.5, Eos % (Auto) 3.3, Baso % (Auto) 0.4, Neut # (Auto) 4.6, Lymph # (Auto) 1.8, [place] # (Auto) 0.4, Eos # (Auto) 0.2, Baso # (Auto) 0.0 05/30/18 17:05: Sodium 142, Potassium 4.5, Chloride 107, Carbon Dioxide 23, Anion Gap 16.5 H, BUN 24 H, Creatinine 1.90 H, Estimated Creat Clear 31, Estimated GFR 34 L, Est GFR ( Amer) 41 L, Glucose 116 H, Calcium 9.6, Total Bilirubin 0.7, AST 10 L, ALT 21, Alkaline Phosphatase 139 H, Total Protein 6.6, Albumin 3.1 L, Globulin 3.5 H, Albumin/Globulin Ratio 0.9 L 05/30/18 17:05: Troponin I 0.02 05/30/18 18:05: Urine Color Yellow, Urine Appearance Clear, Urine pH 6.0, Ur Specific [place] >= 1.030, Urine Protein 1+, Urine Glucose (UA) Negative, Urine Ketones Negative, Urine Blood 1+, Urine Nitrate Negative, Urine Bilirubin Negative, Urine Urobilinogen 0.2, Ur Leukocyte Esterase 1+ A, Urine RBC 3-5, Urine WBC 5-10, Ur Squamous Epith Cells Occasional, Urine Bacteria 2+ 05/30/18 21:31: POC Glucose 104 I & O for Last 24 hours: Intake & Output 05/28/18 05/29/18 05/30/18 05/31/18 11:59 11:59 11:59 11:59 Intake Total 240 / 240 Output Total 100 / 100 Balance 140 / 140 Weight 163 lb 4.001 oz Narrative: Patient is sitting in bed. He does not appear to be in any pain. On scalp examination he has a 3 cm linear superficial abrasion on the posterior scalp that is not actively bleeding. And a smaller abrasion on the left posterior scalp that is not actively bleeding. Pupils are reactive to light. Oropharynx is moist. Tongue is in the midline. Neck is without lymphadenopathy. Lungs are clear to auscultation. Heart has a regular rate and rhythm. Abdomen is soft and nontender. Musculoskeletal exam: Patient has active range of motion in both upper and lower extremities. He has pain-free flexion and extension of the left elbow. There is a palpable knot on the medial left arm just above the elbow area. This is mobile and soft tissue in origin. Neurologic exam: Patient is oriented to person and place at the time of interview. Cranial nerves are without deficits. Motor and sensory function in the extremities is intact. Gait was not tested Assessment and Plan (1) Orthostatic hypotension Current visit: Yes Status: Acute Category: Medical Code(s): I95.1 - Orthostatic hypotension (2) Frequent falls Current visit: Yes Status: Acute Category: Medical Code(s): R29.6 - Repeated falls (3) Abrasion of scalp without infection Current visit: Yes Status: Acute Category: Medical Code(s): S00.01XA - Abrasion of scalp, initial encounter (4) Head trauma Current visit: Yes Status: Acute Category: Medical Code(s): S09.90XA - Unspecified injury of head, initial encounter (5) Left ventricular systolic dysfunction, chronic Current visit: Yes Status: Acute Category: Medical Code(s): I51.9 - Heart disease, unspecified (6) Episode of generalized weakness Current visit: No Status: Acute Category: Medical Code(s): R53.1 - Weakness - Assessment and plan all Dx Assessment and Plan for all problems:: 1. CT head this morning as patient is on both aspirin and Plavix and is struck his head. He does not have any new neurologic deficits 2. Saline lock IV and check orthostatic blood pressure and pulse later this morning 3. PT consult to assess mobility as well as patient safety 4. Echocardiogram to assess LV function. Patient was previously on Entresto and beta-blockers which have been discontinued due to hypotension 5. Continue monitoring for falls with bed safety alarm 6. I am not sure patient will be safe enough to return home without 24-hour supervision. We will await PT evaluation. 7. Await urine culture
--- NOTE | 2018-05-31 07:53 | Pharmacy Consult Notes ---
[facility] Pharmacy VTE Monitoring - Patient Demographics Admission date: 05/30/18 Report Date: 05/31/18 Time: 07:52 Allergies/Adverse Reactions: Patient Allergies acetaminophen [From Lortab] Allergy (Verified 03/19/18 13:55) hydrocodone [From Lortab] Allergy (Verified 03/19/18 13:55) morphine [MORPHINE] Adverse Reaction (Unknown, Verified 03/19/18 13:55) "MAKES CRAZY" Height: 1.85 m Weight: 74.049 kg Patient Problems: Current Active Problems Dehydration (Acute) Orthostatic hypotension (Acute) Frequent falls (Acute) Abrasion of scalp without infection (Acute) Head trauma (Acute) Left ventricular systolic dysfunction, chronic (Acute) - VTE Risk Labs: VTE Related Lab Results Hgb 12.6 g/dL (14.1-18.0) L 05/30/18 17:05 Hct 39.0 % (42.0-52.0) L 05/30/18 17:05 Plt Count 226 K/mm3 (142-424) 05/30/18 17:05 BUN 24 mg/dL (7-18) H 05/30/18 17:05 Creatinine 1.90 mg/dL (0.70-1.30) H 05/30/18 17:05 Estimated Creat Clear 31 mL/min (0-300) 05/30/18 17:05 VTE Score: 7 VTE Risk Level: Moderate Risk - Prophylaxis VTE Prophylaxis Ordered?: Yes Types of VTE Prophylaxis: TEDS Knee High Location of Applied Device: Bilateral Lower Extremeties - VTE Diagnosis Confirmed Treatment or plan recommended: Continue Current Treatment
[2018-06-01 07:02] LABS: Anion Gap 12.8 mEq/L (5-15); Calcium 8.8 mg/dL (8.5-10.1); Potassium 3.8 mmoL/L (3.5-5.1)
--- NOTE | 2018-06-01 07:03 | Progress Note ---
Internal Medicine - PN: Subj *Date: 06/01/18 *Time: 07:00 Interval history: Patient has no complaints. He believes he is strong enough to ambulate. He denies lightheadedness when ambulatory yesterday. Nursing staff reports that patient's urine has lightened in color. He has not been out of bed overnight. Exam Vital signs and Labs for Last 24 Hours: Temp Pulse Resp BP Pulse Ox 98.1 F 92 H 16 130/68 97 06/01/18 04:30 06/01/18 04:30 06/01/18 04:30 06/01/18 04:30 06/01/18 04:30 Laboratory Results - last 24 hr 05/31/18 07:42: POC Glucose 85 05/31/18 11:37: POC Glucose 109 05/31/18 16:59: POC Glucose 100 05/31/18 20:04: POC Glucose 100 06/01/18 06:07: POC Glucose 88 I & O for Last 24 hours: Intake & Output 05/29/18 05/30/18 05/31/18 06/01/18 11:59 11:59 11:59 11:59 Intake Total 600 / 600 360 / 360 Output Total 100 / 100 500 / 500 Balance 500 / 500 -140 / -140 Weight 163 lb 4.001 oz 163 lb 4.001 oz Microbiology Reports for the Last 24 Hours: Microbiology 05/30/18 18:05 Urine,Clean Catch Urine Culture - Preliminary NO GROWTH AFTER 24 HOURS Radiology Reports for the Last 24 Hours: Echocardiogram preliminary report is inconclusive for an ejection fraction Narrative: Patient is in no distress. Oropharynx is moist. Lungs are clear. Heart rate is irregular. Skin examination reveals dried blood at the posterior scalp abrasion Assessment and Plan (1) Orthostatic hypotension Current visit: Yes Status: Acute Category: Medical Code(s): I95.1 - Orthostatic hypotension (2) Frequent falls Current visit: Yes Status: Acute Category: Medical Code(s): R29.6 - Repeated falls (3) Abrasion of scalp without infection Current visit: Yes Status: Acute Category: Medical Code(s): S00.01XA - Abrasion of scalp, initial encounter (4) Head trauma Current visit: Yes Status: Acute Category: Medical Code(s): S09.90XA - Unspecified injury of head, initial encounter (5) Left ventricular systolic dysfunction, chronic Current visit: Yes Status: Acute Category: Medical Code(s): I51.9 - Heart disease, unspecified (6) Episode of generalized weakness Current visit: No Status: Acute Category: Medical Code(s): R53.1 - Weakness - Assessment and plan all Dx Assessment and Plan for all problems:: 1. Await BMP 2. Repeat orthostatics today as well as EKG 3. Continue PT
--- NOTE | 2018-06-01 11:22 | Cardiology Report ---
PROCEDURE: INDICATIONS FOR THE TEST: Chest pain COPD Heart Murmur Tobacco Smoking Palpitations Fatigue Syncope+ Edema Hypertension Diabetes Mellitus Rheumatic Fever SOB ARCHER Obesity Hyperlipidemia Family History HD Additional History ca, chf, mi 2018, tde poor us windows PATIENT INFORMATION HEIGHT: 72 WEIGHT:163 GENDER: Male B/P:122/70 2-D/M-MODE INTERPRETATION: 2-D MEASUREMENTS OBSERVED VALUES IN CMS Right Ventricular Dimension (RVDd) Interventricular Septum (Thickness)(IVsd) Left Ventricular Internal Dimensions(LVIDd) Left Ventricular Posterior Wall (Thickness)(LVPWd) Aortic Root 3.5 Aortic Cusp Separation 1.1 Left Atrial Dimensions (LAD) 4.2 2D 1. Technically very difficult study, endocardial surfaces are poorly visualized. 2. Left atrium is mildly enlarged, left ventricle is normal size, mild concentric left ventricular hypertrophy visually estimated ejection fraction approximately 40%, with marked hypokinesis involving the mid to distal septum, anteroapical and apical wall. 3. The right atrium and right ventricle are normal size and contractility. 4. The aortic valve is thickened and calcified leaflet continue to display mobility. 5. The mitral and tricuspid valve leaflets are minimally thickened. 6. No significant pericardial effusion noted. DOPPLER INTERROGATION: Doppler interrogation of the aortic, mitral and tricuspid valvular presence of mild mitral and tricuspid regurgitation, tricuspid regurgitation jet velocity is insufficient for calculation of the right ventricular systolic pressure, Doppler evidence of impaired LV relaxation seen. Conclusion: 1. Mildly enlarged left atrium, normal left ventricular size, mild concentric left ventricular hypertrophy, visually estimated ejection fraction approximately 40% with segmental wall motion abnormality described above, Doppler evidence of impaired LV relaxation seen. 2. Mild mitral and tricuspid regurgitation 3. No significant pericardial effusion noted.
--- NOTE | 2018-06-01 13:30 | Discharge Summary ---
General - General Admission date:: 05/30/18 Discharge date: 06/01/18 HPI HPI: 88-year-old male presented to the emergency department after having a near syncopal event at home. Patient was discharged from [facility] approximately 1 week ago. During that time he had problems with hypotension and all antihypertensives have been discontinued. Yesterday patient was being assessed by home health and poor home health report patient had a significant drop in his blood pressure when he went from seated to standing. This led to the patient nearly falling from passing out. Patient was brought to the emergency department. In the emergency department blood pressures were normal. I do not see if orthostatics were repeated. Patient was admitted for IV fluids. Labs were essentially normal although urine was quite dark. Patient has been treated frequently for urinary tract infections over the last 4-6 months but has no culture positive urines. Patient history is primarily taken from the ER note and phone call that the made to my office. While nursing notes report patient has been alert and oriented x3 prior to my arrival this morning the patient fell when trying to get out of bed and struck the back of his head on a cabinet. When asked if he remembers the events of yesterday that led to his admission patient cannot recall what led to his hospitalization. He does start to tell me that he apparently has some upcoming doctor's appointments. From his fall this morning he does admit to some pain in the head. He struck his left arm as well but denies any significant elbow pain. Hospital Course Hospital Course: Was admitted over the initial 12 hours of hospitalization was given normal saline at 100 mL's an hour. Patient has known LV dysfunction so on the morning of the fluids were discontinued. Orthostatics performed later in the morning revealed persistent orthostatic hypotension with systolic dropping to 70s with standing. Evening of the third of the regarded. Echocardiogram performed but was inconclusive in regards to patient's ejection fraction. Patient did not she signs of fluid overload. After receiving additional IV fluids normal saline at 101-hour overnight from May 31 to the morning of June 01. The following morning repeat orthostatics did show improvement in patient's blood pressure. Physical therapy had evaluated the patient the before and felt patient was appropriate to return home once his medical issues had stabilized. Patient's was comfortable taking the patient home. Did discuss adequate fluid intake. He will also discontinue his metformin due to impaired renal function. Patient had fallen trying to get out of bed on morning of the third. He did suffer an abrasion to the posterior scalp. This was bandaged with a nonstick bandage. CT scan of the head was performed and was negative for intracranial bleed. Patient did not have any neurologic changes. Patient returned home with 24-hour care. Health will be consulted for vital sign monitoring and home safety as well as physical therapy Objective Vital signs: Temp Pulse Resp BP Pulse Ox 98.1 F 86 16 127/83 97 06/01/18 04:30 06/01/18 08:30 06/01/18 04:30 06/01/18 08:30 06/01/18 04:30 Results Labs on day of discharge: Labs from last 24 hours 06/01/18 06/01/18 05/31/18 06:16 06:07 20:04 Sodium 143 Potassium 3.8 Chloride 112 H Carbon Dioxide 22 Anion Gap 12.8 BUN 17 D Creatinine 1.41 H D Estimated Creat Clear 39 Estimated GFR 48 L Est GFR ( Amer) 58 L D Glucose 85 POC Glucose 88 100 Calcium 8.8 05/31/18 16:59 Sodium Potassium Chloride Carbon Dioxide Anion Gap BUN Creatinine Estimated Creat Clear Estimated GFR Est GFR ( Amer) Glucose POC Glucose 100 Calcium Preliminary micro results at discharge 05/30/18 18:05 Urine Culture - Preliminary Urine,Clean Catch NO GROWTH AFTER 24 HOURS DS: Diagnosis - Discharge Diagnosis (1) Orthostatic hypotension Status: Acute (2) Frequent falls Status: Acute (3) Abrasion of scalp without infection Status: Acute (4) Head trauma Status: Acute (5) Left ventricular systolic dysfunction, chronic Status: Acute (6) Episode of generalized weakness Status: Acute Discharge Plan - Patient Discharge Instructions ACTIVITY: Continue current activity DIET: continue same diet Patient Instructions: DI for Dehydration -- Adult, How to Prevent Falls - Follow up Plan Disposition: Home, Self-Jail Medications: Home Medications Medication Instructions Recorded Confirmed Type Aspirin [Aspir 81] 81 mg PO DAILY 11/15/17 05/30/18 History Clopidogrel Bisulfate [Plavix 75mg 75 mg PO DAILY 11/15/17 05/30/18 History Tab] Nitrofurantoin Monohyd/M-Cryst 100 mg PO DAILY 10/03/18 10/03/18 History [Nitrofurantoin [facility]-Mcr 100 mg] Prescriptions/Medication Reconciliation: Continue Aspirin [Aspir 81] 81 mg PO DAILY Nitrofurantoin Monohyd/M-Cryst [Nitrofurantoin [facility]-Mcr 100 mg] 100 mg PO DAILY Clopidogrel Bisulfate [Plavix 75mg Tab] 75 mg PO DAILY Discontinued Metformin HCl 500 mg PO BID - Additional Information Additional Information: Home health consult
== END 2018-06-01 16:45 | disposition home health service (06) ==
LOC: 2ND 17:03 → ER 17:03 → 2ND 19:28
PROVIDERS: ADMIT Internal Medicine Adolescent Medicine; ATTEND Family Medicine

== ENCOUNTER 2018-11-07 11:23 | Observation (INO) ==
[2018-11-07 11:52] LABS: Basophils % 0.5 % (0.1-2.0); Eosinophils # 0.2 K/mm3 (0.0-0.4); Eosinophils % 2.7 % (0.1-12.0); Hematocrit 39.7 % (42.0-52.0); Lymphocytes # 1.4 K/mm3 (0.7-4.5); Mean Corpuscular HGB Conc 32.8 g/dL (31.8-35.4); Mean Corpuscular Hemoglobin 32.3 pg (27.0-31.2); Mean Corpuscular Volume 98.3 fl (80-94); Monocytes # 0.3 K/mm3 (0.1-1.0); Monocytes % 4.6 % (1.7-9.3); Neutrophils # 4.3 K/mm3 (1.8-7.8); Neutrophils % 69.2 % (37.0-80.0); Platelet Count 222 K/mm3 (142-424); Red Blood Count 4.04 M/mm3 (4.60-6.20); Red Cell Distribution Width 13.4 % (11.5-17.5); White Blood Count 6.2 K/mm3 (4.8-10.8)
[2018-11-07 11:54] LABS: Microscopic, Urine URINE MICROSCOPIC (MICROSCOPIC)
[2018-11-07 11:58] LABS: Appearance,Urine CLEAR (Clear); Bilirubin,Urine Negative (Negative); Blood, Urine Negative (Negative); Color,Urine YELLOW (Yellow); Glucose,Urine (UA) Negative (Negative); Ketones,Urine Negative (Negative); Leukocyte Esterase,Urine 1+ (Negative); Protein,Urine TRACE (Negative); Specific Gravity, Urine 1.015 (1.005-1.030); Urobilinogen,Urine 0.2 EU/dl (0.2)
--- NOTE | 2018-11-07 12:01 | Emergency Department Note ---
ED Disposition Clinical Impression: Generalized weakness Congestive heart failure Qualifiers: Heart failure type: unspecified Heart failure chronicity: acute on chronic Qualified Code(s): I50.9 - Heart failure, unspecified Disposition: Admitted As Inpatient Condition on Discharge: [facility] - Critical Care Critical Care Time: No Attestation: On 11/07/18, the high probability of a clinically significant, sudden or life threatening deterioration of the following system(s) required my full and direct attention, intervention and personal management. The time I documented below is in addition to time spent performing reported procedures but includes the following listed in this critical care notation. Medical Decision Making - Mil Inquiry Pt receiving controlled substance: No Vital Signs: 11/07/18 11:34 11/07/18 12:17 11/07/18 12:30 Temperature 98.4 F Temperature Source Oral Pulse Rate Pulse Rate [Left Radial] 88 92 H Respiratory Rate 16 Blood Pressure Blood Pressure [Right Arm] 156/115 H 152/96 H Blood Pressure Mean [Right Arm] 128 114 Blood Pressure Source Blood Pressure Source [Right Arm] Automatic Cuff Automatic Cuff Blood Pressure Position Blood Pressure Position [Right Arm] Sitting Supine 02 Sat by Pulse Oximetry 98 98 Oxygen Delivery Method Room Air Room Air 11/07/18 14:50 Temperature 98.0 F Temperature Source Oral Pulse Rate 88 Pulse Rate [Left Radial] 99 H Respiratory Rate 18 Blood Pressure 152/90 H Blood Pressure [Right Arm] 160/83 H Blood Pressure Mean [Right Arm] 108 Blood Pressure Source Automatic Cuff Blood Pressure Source [Right Arm] Automatic Cuff Blood Pressure Position Sitting Blood Pressure Position [Right Arm] Supine 02 Sat by Pulse Oximetry 88 L Oxygen Delivery Method Room Air - Lab Data Lab Results 11/07/18 11:40: WBC 6.2, RBC 4.04 L, Hgb 13.0 L, Hct 39.7 L, MCV 98.3 H, MCH 32.3 H, MCHC 32.8, RDW 13.4, Plt Count 222, MPV 9.0, Neut % (Auto) 69.2, Lymph % (Auto) 23.0, [place] % (Auto) 4.6, Eos % (Auto) 2.7, Baso % (Auto) 0.5, Neut # (Auto) 4.3, Lymph # (Auto) 1.4, [place] # (Auto) 0.3, Eos # (Auto) 0.2, Baso # (Auto) 0.0 11/07/18 11:40: Sodium 139, Potassium 4.5, Chloride 103, Carbon Dioxide 26, Anion Gap 14.5, BUN 44 H, Creatinine 1.94 H, Estimated Creat Clear 33, Estimated GFR 33 L, Est GFR ( Amer) 40 L, Glucose 128 H, Calcium 10.3 H, Total Bilirubin 0.6, AST 16, ALT 24, Alkaline Phosphatase 107, Total Protein 7.4, Albumin 3.5, Globulin 3.9 H, Albumin/Globulin Ratio 0.9 L 11/07/18 11:40: Urine Color Yellow, Urine Appearance Clear, Urine pH 6.0, Ur Specific [place] 1.015, Urine Protein Trace, Urine Glucose (UA) Negative, Urine Ketones Negative, Urine Blood Negative, Urine Nitrate Negative, Urine Bilirubin Negative, Urine Urobilinogen 0.2, Ur Leukocyte Esterase 1+ A, Urine RBC Occasional, Urine WBC 10-20, Ur Squamous Epith Cells 3-5, Urine Bacteria 1+ 11/07/18 11:40: B-Natriuretic Peptide 1030 H 11/07/18 11:40: Troponin I 0.02 Result diagrams: 11/07/18 11:40 11/07/18 11:40 Orders (Tests/Meds): ED MEDICATIONS Generic Name Dose Route Start Last Admin Trade Name Freq PRN Reason Stop Dose Admin Aspirin 81 mg 11/08/18 09:00 Aspirin 81mg Enteric Coated Tablet PO 12/08/18 08:59 DAILY DANITZA Clopidogrel Bisulfate 75 mg 11/08/18 09:00 Plavix 75mg Tablet PO 12/08/18 08:59 DAILY DANITZA Nitrofurantoin Macrocrystals 100 mg 11/08/18 09:00 Macrodantin 100mg Capsule PO 11/22/18 08:59 DAILY DANITZA Sodium Chloride 10 ml 11/07/18 14:22 Saline Flush 10ml Syringe IV 12/07/18 12:01 NEEDED PRN Maintain IV Site Discontinued Medications Generic Name Dose Route Start Last Admin Trade Name Freq PRN Reason Stop Dose Admin Hydrocodone Bitart/Acetaminophen 1 tab 11/07/18 14:03 11/07/18 14:09 [place] 5/325mg Tablet PO 11/07/18 14:04 1 tab ONCE ONE Administration Furosemide 40 mg 11/07/18 13:41 11/07/18 13:57 Lasix 40mg/4ml Vial IV 11/07/18 13:42 40 mg ONCE ONE Administration Sodium Chloride 10 ml 11/07/18 12:02 Saline Flush 10ml Syringe IV 12/07/18 12:01 NEEDED PRN Maintain IV Site ORDERS Category Date Time Status Basic Metabolic Panel AMLAB Lab 11/08/18 06:00 Ordered Urine Culture Stat Micro 11/07/18 11:40 Received - Radiology Data #1 Image(s): Chest, Hip Image Reviewed: Yes I reviewed the patient's radiology image, Yes I reviewed the patient's radiology image w/the ED provider Chest: IMPRESSION: CHF with interstitial edema Dictated By: Kurt Ruiz MD Signed By: <Electronically signed by Kurt Ruiz MD in [place]> 11/07/18 1257 Hip: IMPRESSION: Status post ORIF left subcapital femoral neck fracture with prominence of the fracture line and mild medial displacement of the femoral head. The 3 pins in the femur are not flush with the shaft of the femur however, this did appear to be present on a CT scan of 06/15/2018. No definite acute fracture. Dictated By: Kurt Ruiz MD Signed By: <Electronically signed by Kurt Ruiz MD in [place]> 11/07/18 1304 - ECG Data Tracing #1 EKG interpreted by Rangel Zavala MD: Rhythm: Regular rhythm with extrasystoles, large amount of baseline artifact, but appears to be sinus rhythm. Rate: 88 [place]: normal Ectopy: Premature ventricular contractions Conduction: Left bundle branch block ST Segment Changes: none T Wave Changes: none Q Waves: none No evidence of acute ischemia or injury Prior electrocardiagrams reviewed. No change from prior tracings. - Physician Consults Physician Consulted: Mario Time: 13:42 Reason -: Admission, Pt condition Comment/Response: Agrees to admit the patient to the hospital. We discussed the patient's clinical information, including history, exam, laboratory and radiology results and ED course. Per hospital procedure, I will write temporary bridge inpatient orders on the patient. Specific orders requested by the admitting physician: Lasix 40 mg IV x1, cardiac echo Medical Decision Narrative: Reviewed prior labs. Has had multiple urine analysis and urine cultures over the past year. Patient chronically has pyuria and all urine cultures performed here have been either negative or multiple organisms suggestive of contamination. General Adult HPI - General Chief complaint: Weakness Stated complaint: weakness Time Seen by Provider: 11/07/18 12:00 Mode of Arrival: Wheelchair Limitations: No Limitations Description of Symptoms (Recalled from ER Triage Doc. by RN): to ed per pvt car with c/o difficulty ambulating x 1 week. history supplied by . states pt was started on K+ 2 weeks ago and has had diff. after starting meds. - History of Present Illness HPI narrative: reports the patient has had difficulty ambulating for several days. Today was having trouble walking, would shake all over when he tried to walk. She feels he is generally weak. She says he recently has been started on Lasix due to swelling in the past 2-3 weeks along with potassium. She wonders whether he is getting too much potassium. He had a fracture of his left hip last year and is currently in therapy. He has had some pain in his left hip down to his left knee recently, but she says he has not complained of it in the past 2-3 days. Patient currently denies any pain or any other complaints. - Related Data Home Medications Medication Instructions Recorded Confirmed Clopidogrel Bisulfate [Plavix 75mg 75 mg PO DAILY 11/15/17 11/07/18 Tab] Nitrofurantoin Monohyd/M-Cryst 100 mg PO DAILY 05/31/18 11/07/18 [Nitrofurantoin [place]-Mcr 100 mg] Furosemide [Lasix 80mg tab] 10 mg PO BID 11/07/18 11/07/18 Hydrocodone/Acetaminophen [Lortab 1 tab PO Q6HP PRN 11/07/18 11/07/18 7.5/325mg tablet] Potassium Chloride [Micro-K 10mEq 10 meq PO DAILY 11/07/18 11/07/18 cap] Allergies Allergy/AdvReac Type Severity Reaction Status Date / Time No Known Allergies Allergy Verified 11/07/18 14:05 [facility] History - Hepatitis A Screen Drug use history?: No High risk sexual behaviors?: No History of sexually transmitted infection?: No Currently employed?: No Childcare worker?: No Do you have indoor plumbing?: Yes Do you have electricity?: Yes Attestation statement:: This patient has been screened for Hepatitis A risk factors. I have reviewed the patient's past medical history: Yes Medical History: Reports:: Congestive Heart Failure, Dementia, Myocardial Infarction (July 2018) Denies:: Cancer, Diabetes Mellitus Type 1, Diabetes Mellitus Type 2, Internal Pacemaker, MRSA Laterality Cases: Left: Arthroscopy Hip, Arthroscopy Knee Other Surgeries: Yes: Cancer Surgery. No: Pacemaker Amputation: No Fractures: No - Social History Smoking Status: Never smoker Alcohol Intake: never Occupational Status: retired Housing: house Household Members: spouse - Psychiatric History Expresses thoughts of harming self/others: None Suicide Plan Description: No Plan Family Hx:: Heart Attack ROS Obtained: Yes unobtainable due to mental condition (Dementia) Physical Exam - General General appearance: alert, in no apparent distress - Head Head exam: atraumatic, normocephalic - Eye Eye exam: Present: normal appearance, PERRL, EOMI - ENT ENT exam: Present: mucous membranes moist - Neck Neck exam: Present: normal inspection, trachea midline - Chest Chest inspection: Present: normal inspection, symmetric chest wall rise - Respiratory Respiratory exam: Present: normal lung sounds bilaterally. Absent: respiratory distress, accessory muscle use - Cardiovascular Cardiovascular exam: Present: regular rate, normal heart sounds, other (Extrasystoles) - Abdominal Exam Abdominal exam: Present: soft. Absent: distention, tenderness, guarding, rebound - Extremities Exam Extremities exam: Present: other (2+ pitting edema both lower extremities) - Neurological Exam Neurological exam: Present: alert, CN II-XII intact. Absent: motor sensory deficit - Psychiatric Psychiatric exam: Present: normal affect, normal mood - Skin Skin exam: Present: warm, dry
[2018-11-07 12:12] LABS: Bacteria,Urine 1+ /lpf; RBC,Urine Occasional #/hpf (0-3)
[2018-11-07 12:23] LABS: Albumin Level 3.5 gm/dL (3.4-5.0); Albumin/Globulin Ratio 0.9 (1.1-1.8); Anion Gap 14.5 mEq/L (5-15); Bilirubin,Total 0.6 mg/dL (0.2-1.0); Calcium 10.3 mg/dL (8.5-10.1); Globulin 3.9 gm/dl (1.3-3.2); Potassium 4.5 mmoL/L (3.5-5.1); Total Protein,Serum 7.4 gm/dL (6.4-8.2)
--- NOTE | 2018-11-07 15:29 | Pharmacy Consult Notes ---
[facility] Pharmacy VTE Monitoring - Patient Demographics Admission date: 11/07/18 Report Date: 11/07/18 Time: 15:29 Allergies/Adverse Reactions: Patient Allergies No Known Allergies Allergy (Verified 11/07/18 14:05) Height: 1.85 m Weight: 80.286 kg Patient Problems: Current Active Problems Congestive heart failure (Acute) Generalized weakness (Acute) - VTE Risk Labs: VTE Related Lab Results Hgb 13.0 g/dL (14.1-18.0) L 11/07/18 11:40 Hct 39.7 % (42.0-52.0) L 11/07/18 11:40 Plt Count 222 K/mm3 (142-424) 11/07/18 11:40 BUN 44 mg/dL (7-18) H 11/07/18 11:40 Creatinine 1.94 mg/dL (0.70-1.30) H 11/07/18 11:40 Estimated Creat Clear 33 mL/min (50-200) 11/07/18 11:40 - Prophylaxis VTE Prophylaxis Ordered?: Yes Types of VTE Prophylaxis: TEDS Knee High Location of Applied Device: Bilateral Lower Extremeties - VTE Diagnosis Confirmed Treatment or plan recommended: Continue Current Treatment
--- NOTE | 2018-11-07 16:56 | History & Physical Report ---
*Admission Date: 11/07/18 *Chief complaint: Tremors *History of present illness: 88-year-old male with history of coronary artery disease, DC, LV dysfunction, and a known pancreatic mass presented to the emergency department because of tremors and generalized shakiness when attempting to ambulate. The patient's had actually contacted the office early in the morning and she was worried he had abnormal potassium because he has been taking a diuretic for lower extremity edema. Because his claimed that he was unable to walk they were advised to contact EMS and go to the emergency department. Patient's now tells me he was actually able to stand under his own power but seemed shaky when walking with his walker and his legs did not seem to have the mobility that they had the day before. Patient has now been rehabilitating a fractured left hip for over 6 months. In the emergency department patient underwent a workup that revealed signs of congestive heart failure with an abnormal chest x-ray and an elevated BNP. Patient was not having any symptoms of congestive heart failure such as chest pain or shortness of breath. Decision was made to admit the patient for observation and diuresis. Patient has a known pancreatic lesion detected on a CT scan of the head of the pancreas. Patient's is aware of this and has been informed that it is most likely a malignancy. The patient himself is unaware and the patient's is worried that he will "give up on me" if he finds out he has the tumor. Patient himself suffers from dementia. [facility] History I have reviewed the patient's past medical history: Yes Medical History: Reports:: Congestive Heart Failure, Dementia, Myocardial Infarction (July 2018) Denies:: Cancer, Diabetes Mellitus Type 1, Diabetes Mellitus Type 2, Internal Pacemaker, MRSA *Have you ever received a pneumonia vaccine?: No *Have you received a flu vaccine this season?: Yes Laterality Cases: Left: Arthroscopy Hip, Arthroscopy Knee Other Surgeries: Yes: Cancer Surgery. No: Pacemaker Amputation: No Fractures: No - *Social History Smoking Status: Never smoker Alcohol Intake: never *Occupational Status:: retired Housing: house Household Members: spouse *Travel in the last 8 weeks: None - Psychiatric History Expresses thoughts of harming self/others: None Suicide Plan Description: No Plan Family Hx:: Heart Attack Review of Systems - Review of Systems Review of systems:: pertinent systems reviewed and negative unless documented below Meds Home Medications Medication Instructions Recorded Confirmed Type Clopidogrel Bisulfate [Plavix 75mg 75 mg PO DAILY 11/15/17 11/07/18 History Tab] Nitrofurantoin Monohyd/M-Cryst 100 mg PO DAILY 05/31/18 11/07/18 History [Nitrofurantoin [place]-Mcr 100 mg] Lactulose [Lactulose 10gm/15ml 15 ml PO DIRECTED 11/07/18 11/07/18 History Oral Soln] Potassium Chloride [Micro-K 10mEq 10 meq PO DAILY 11/07/18 11/07/18 History cap] Allergies Allergy/AdvReac Type Severity Reaction Status Date / Time No Known Allergies Allergy Verified 11/07/18 14:05 Exam Vital signs and Labs for Last 24 Hours: Temp Pulse Resp BP Pulse Ox 98 F 99 H 20 160/83 H 88 L 11/07/18 14:50 11/07/18 14:50 11/07/18 14:50 11/07/18 14:50 11/07/18 14:50 Laboratory Results - last 24 hr 11/07/18 11:40: WBC 6.2, RBC 4.04 L, Hgb 13.0 L, Hct 39.7 L, MCV 98.3 H, MCH 32.3 H, MCHC 32.8, RDW 13.4, Plt Count 222, MPV 9.0, Neut % (Auto) 69.2, Lymph % (Auto) 23.0, [place] % (Auto) 4.6, Eos % (Auto) 2.7, Baso % (Auto) 0.5, Neut # (Auto) 4.3, Lymph # (Auto) 1.4, [place] # (Auto) 0.3, Eos # (Auto) 0.2, Baso # (Auto) 0.0 11/07/18 11:40: Sodium 139, Potassium 4.5, Chloride 103, Carbon Dioxide 26, Anion Gap 14.5, BUN 44 H, Creatinine 1.94 H, Estimated Creat Clear 33, Estimated GFR 33 L, Est GFR ( Amer) 40 L, Glucose 128 H, Calcium 10.3 H, Total Bilirubin 0.6, AST 16, ALT 24, Alkaline Phosphatase 107, Total Protein 7.4, Albumin 3.5, Globulin 3.9 H, Albumin/Globulin Ratio 0.9 L 11/07/18 11:40: Urine Color Yellow, Urine Appearance Clear, Urine pH 6.0, Ur Specific [place] 1.015, Urine Protein Trace, Urine Glucose (UA) Negative, Urine Ketones Negative, Urine Blood Negative, Urine Nitrate Negative, Urine Bilirubin Negative, Urine Urobilinogen 0.2, Ur Leukocyte Esterase 1+ A, Urine RBC Occasional, Urine WBC 10-20, Ur Squamous Epith Cells 3-5, Urine Bacteria 1+ 11/07/18 11:40: B-Natriuretic Peptide 1030 H 11/07/18 11:40: Troponin I 0.02 I & O for Last 24 hours: Intake & Output 11/05/18 11/06/18 11/07/18 11/08/18 11:59 11:59 11:59 11:59 Output Total 1200 / 1200 Balance -1200 / -1200 Weight 190 lb 177 lb Narrative: Patient is laying on his right side in bed. He will open his eyes when his name is called. He does answer questions. Oropharynx is moist. Neck is without lymphadenopathy. Lungs are clear to auscultation. Heart has a regular rate and rhythm. Abdomen is soft and nontender. Extremities have 2+ edema. [place] catheter is anchored and has 1000 mL's of clear red urine. Assessment and Plan (1) Acute on chronic systolic heart failure Current visit: Yes Status: Acute Category: Medical Code(s): I50.23 - Acute on chronic systolic (congestive) heart failure Patient has been given 40 mg of Lasix intravenously in the emergency department. He will be given an additional 40 mg this evening with careful monitoring of urine output via his [place] catheter. 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 Patient is seemingly doing well at this time according to the . We did discuss palliative measures should patient's condition worsen (3) Chronic kidney disease Current visit: Yes Status: Acute Category: Medical Code(s): N18.9 - Chronic kidney disease, unspecified
--- NOTE | 2018-11-07 20:04 | Cardiology Report ---
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 Technically very difficult and poor studies. Limited views were not obtained, resting the long axis and short axis were not obtained. 2. The left atrium is mildly enlarged, left ventricle is normal size, mild concentric left ventricular hypertrophy, in the obtained views ejection fraction is ranging from 30-40%, there appears to be hypokinesis involving the mid to distal septum and apical wall. A repeat study with better technique is definitely contrast is recommended for accurate assessment of the left ventricular systolic function. 3. The right atrium and ventricle are normal size and contractility. 4. The aortic valve is thickened and calcified. There is restriction the leaflet mobility. 5. The mitral and tricuspid valve is minimally thickened. 6. The pulmonic valve is poorly visualized. 7. No significant pericardial effusion noted. DOPPLER INTERROGATION: Doppler assessment is inadequate for the assessment of the aortic valve stenosis, there is mild mitral and tricuspid regurgitation noted. Tricuspid regurgitation jet velocity is inadequate for calculation of the right ventricular systolic pressure CONCLUSION: 1. Technically poor and very difficult study as described above. Repeat study with better Doppler technique, and definitely contrast is recommended for accurate assessment of the valvular abnormalities as well as ejection fraction. 2. Mildly enlarged left atrium, left ventricle size, mild concentric left ventricular hypertrophy, in the obtained views , the ejection fraction is ranging from 30-40% with segmental wall motion abnormalities as described above. 3. Thickened and calcified aortic valve degree of aortic stenosis cannot be ascertain from this study. 4. Mild mitral and tricuspid regurgitation 5. No significant pericardial effusion noted.
--- NOTE | 2018-11-08 06:54 | Discharge Summary ---
General - General Admission date:: 11/07/18 Discharge date: 11/08/18 HPI HPI: 88-year-old male with history of coronary artery disease, CO, LV dysfunction, and a known pancreatic mass presented to the emergency department because of tremors and generalized shakiness when attempting to ambulate. The patient's had actually contacted the office early in the morning and she was worried he had abnormal potassium because he has been taking a diuretic for lower extremity edema. Because his claimed that he was unable to walk they were advised to contact EMS and go to the emergency department. Patient's now tells me he was actually able to stand under his own power but seemed shaky when walking with his walker and his legs did not seem to have the mobility that they had the day before. Patient has now been rehabilitating a fractured left hip for over 6 months. In the emergency department patient underwent a workup that revealed signs of congestive heart failure with an abnormal chest x-ray and an elevated BNP. Patient was not having any symptoms of congestive heart failure such as chest pain or shortness of breath. Decision was made to admit the patient for observation and diuresis. Patient has a known pancreatic lesion detected on a CT scan of the head of the pancreas. Patient's is aware of this and has been informed that it is most likely a malignancy. The patient himself is unaware and the patient's is worried that he will "give up on me" if he finds out he has the tumor. Patient himself suffers from dementia. Hospital Course Hospital Course: Patient was admitted in the afternoon after receiving Lasix in the emergency department which the patient had an excellent response to. He received additional Lasix for his asymptomatic acute CHF again in the evening. Over the course of the patient's hospital stay he produced over 3000 mL's of urine. He continued to deny shortness of breath or cough. Patient remained at his baseline level of confusion. He spent most of the hospitalization laying in his right side on the bed. [place] catheter was inserted to measure urine output. Reflex urinalysis was performed. Patient has a long history of urinary tract infections. His urine culture was positive for gram-negative teja. Patient is on prophylactic nitrofurantoin. He was given a single dose of IV Rocephin. The following morning on November 08 after diuresing well He was discharged home Objective Vital signs: Temp Pulse Resp BP Pulse Ox 97.9 F 93 H 16 110/72 96 11/08/18 04:00 11/08/18 04:00 11/08/18 04:00 11/08/18 04:00 11/08/18 04:00 Results Labs on day of discharge: Labs from last 24 hours 11/07/18 11/07/18 11/07/18 11:40 11:40 11:40 WBC RBC Hgb Hct MCV MCH MCHC RDW Plt Count MPV Neut % (Auto) Lymph % (Auto) [place] % (Auto) Eos % (Auto) Baso % (Auto) Neut # (Auto) Lymph # (Auto) [place] # (Auto) Eos # (Auto) Baso # (Auto) Sodium Potassium Chloride Carbon Dioxide Anion Gap BUN Creatinine Estimated Creat Clear Estimated GFR Est GFR ( Amer) Glucose Calcium Total Bilirubin AST ALT Alkaline Phosphatase Troponin I 0.02 B-Natriuretic Peptide 1030 H Total Protein Albumin Globulin Albumin/Globulin Ratio Urine Color Yellow Urine Appearance Clear Urine pH 6.0 Ur Specific Tobias 1.015 Urine Protein Trace Urine Glucose (UA) Negative Urine Ketones Negative Urine Blood Negative Urine Nitrate Negative Urine Bilirubin Negative Urine Urobilinogen 0.2 Ur Leukocyte Esterase 1+ A Urine RBC Occasional Urine WBC 10-20 Ur Squamous Epith Cells 3-5 Urine Bacteria 1+ 11/07/18 11/07/18 11:40 11:40 WBC 6.2 RBC 4.04 L Hgb 13.0 L Hct 39.7 L MCV 98.3 H MCH 32.3 H MCHC 32.8 RDW 13.4 Plt Count 222 MPV 9.0 Neut % (Auto) 69.2 Lymph % (Auto) 23.0 [place] % (Auto) 4.6 Eos % (Auto) 2.7 Baso % (Auto) 0.5 Neut # (Auto) 4.3 Lymph # (Auto) 1.4 [place] # (Auto) 0.3 Eos # (Auto) 0.2 Baso # (Auto) 0.0 Sodium 139 Potassium 4.5 Chloride 103 Carbon Dioxide 26 Anion Gap 14.5 BUN 44 H Creatinine 1.94 H Estimated Creat Clear 33 Estimated GFR 33 L Est GFR ( Amer) 40 L Glucose 128 H Calcium 10.3 H Total Bilirubin 0.6 AST 16 ALT 24 Alkaline Phosphatase 107 Troponin I B-Natriuretic Peptide Total Protein 7.4 Albumin 3.5 Globulin 3.9 H Albumin/Globulin Ratio 0.9 L Urine Color Urine Appearance Urine pH Ur Specific Tobias Urine Protein Urine Glucose (UA) Urine Ketones Urine Blood Urine Nitrate Urine Bilirubin Urine Urobilinogen Ur Leukocyte Esterase Urine RBC Urine WBC Ur Squamous Epith Cells Urine Bacteria Preliminary micro results at discharge 11/07/18 11:40 Urine Culture - Preliminary Urine,Clean Catch Gram Negative Rods DS: Diagnosis - Discharge Diagnosis (1) Acute on chronic systolic heart failure Status: Acute (2) Pancreatic neoplasm Status: Acute (3) Chronic kidney disease Status: Acute (4) UTI (urinary tract infection) Status: Acute Discharge Plan - Patient Discharge Instructions ACTIVITY: Continue current activity DIET: continue same diet - Follow up Plan Disposition: Home, Self-Long-Term Medications: Home Medications Medication Instructions Recorded Confirmed Type Clopidogrel Bisulfate [Plavix 75mg 75 mg PO DAILY 11/15/17 11/07/18 History Tab] Nitrofurantoin Monohyd/M-Cryst 100 mg PO DAILY 05/31/18 11/07/18 History [Nitrofurantoin [place]-Mcr 100 mg] Lactulose [Lactulose 10gm/15ml 15 ml PO DIRECTED 11/07/18 11/07/18 History Oral Soln] Potassium Chloride [Micro-K 10mEq 10 meq PO DAILY 11/07/18 11/07/18 History cap] Baclofen [Lioresal 10mg tablet] 10 mg PO TID #60 tablet 11/08/18 Rx Hydrocod/Acet 5/325 mg [[place] 1 tab PO BIDP PRN #30 tab 11/08/18 Rx 5/325mg tablet] Prescriptions/Medication Reconciliation: New Hydrocod/Acet 5/325 mg [[place] 5/325mg tablet] 1 tab PO BIDP PRN #30 tab PRN Reason: Mild To Moderate Pain Baclofen [Lioresal 10mg tablet] 10 mg PO TID #60 tablet Continue Nitrofurantoin Monohyd/M-Cryst [Nitrofurantoin [place]-Mcr 100 mg] 100 mg PO DAILY Clopidogrel Bisulfate [Plavix 75mg Tab] 75 mg PO DAILY Potassium Chloride [Micro-K 10mEq cap] 10 meq PO DAILY Lactulose [Lactulose 10gm/15ml Oral Soln] 15 ml PO DIRECTED
[2018-11-08 06:57] LABS: Anion Gap 14.3 mEq/L (5-15); Calcium 10.2 mg/dL (8.5-10.1); Potassium 4.3 mmoL/L (3.5-5.1)
== END 2018-11-08 12:53 | disposition home or self-care (01) ==
LOC: ER 11:23 → INTOOBSV 13:54 → 2ND 13:54
PROVIDERS: ADMIT Family Medicine; ATTEND Family Medicine
DX: Z79.899 Other long term (current) drug therapy; I25.2 Old myocardial infarction; D37.8 Neoplasm of uncertain behavior of other specified digestive organs; R53.1 Weakness; R41.0 Disorientation, unspecified; R93.89 Abnormal findings on diagnostic imaging of other specified body structures; I25.10 Atherosclerotic heart disease of native coronary artery without angina pectoris; Z87.440 Personal history of urinary (tract) infections; N18.9 Chronic kidney disease, unspecified; N39.0 Urinary tract infection, site not specified; F03.90 Unspecified dementia, unspecified severity, without behavioral disturbance, psychotic disturbance, mood disturbance, and anxiety; I50.23 Acute on chronic systolic (congestive) heart failure
CPT/HCPCS: 36415; 71010; 71045; 73502; 80048; 80053; 81001; 83880; 84484; 85025; 87086; 87088; 87186; 93005; 93306; 93308; 99284; G0378